=== PATIENT | male | born 1970 | race Two or more races ===

== ENCOUNTER 2020-10-10 22:38 | Emergency (ER) | payer MEDICAID, OTHER ==
[~2020-10-10] VITALS: Ht 190.5 cm; Wt 91.0 kg
[2020-10-10] MEDS ORDERED: KETOROLAC 30MG/ML VIAL IM NR (23:00)
[2020-10-10] MEDS ORDERED: ACETAMINOPHEN WITH CODEINE 300/30MG TABLET PO NR (23:00)
[2020-10-10] MEDS ORDERED: METH-653 MT (23:06)
[2020-10-10] MEDS ORDERED: MED4 MT (23:06)
[2020-10-10] MEDS ORDERED: DEXAMETHASONE 4MG TABLET PO ONE (23:15)
[2020-10-11 00:05] VITALS: BP 131/77
== END 2020-10-11 00:05 | disposition home or self-care (01) ==
LOC: ER 22:38
DX: S39.012A Strain of muscle, fascia and tendon of lower back, initial encounter (principal); Z79.899 Other long term (current) drug therapy; X58.XXXA Exposure to other specified factors, initial encounter; Y93.89 Activity, other specified; Y92.89 Other specified places as the place of occurrence of the external cause; Y99.8 Other external cause status
CPT/HCPCS: 96372; 99283; J1885; J8540